=== PATIENT | male | born 1975 | race Caucasian/White ===

== ENCOUNTER 2018-08-18 14:18 | Emergency (ER) | payer OTHER ==
[2018-08-18] MEDS ORDERED: IBUPROFEN 600 MG TAB PO ONE (15:28)
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
[2018-08-18 15:45] VITALS: BP 137/91
== END 2018-08-18 15:45 | disposition home or self-care (01) ==
DX: S16.1XXA Strain of muscle, fascia and tendon at neck level, initial encounter (principal); S39.012A Strain of muscle, fascia and tendon of lower back, initial encounter; V49.49XA Driver injured in collision with other motor vehicles in traffic accident, initial encounter; Y92.9 Unspecified place or not applicable; Y93.9 Activity, unspecified

== ENCOUNTER → 2019-01-14 | Outpatient (CLI) | payer OTHER | LOC: FIMAGING 15:32 ==